=== PATIENT | female | born 1995 | race Two or more races ===

== ENCOUNTER 2024-10-26 01:25 | Observation (INO) | payer BC, MEDICAID ==
[2024-10-26] MEDS ORDERED: PREN-96 PO (02:21)
--- NOTE | 2024-10-26 10:39 | DVHDS2 ---
Physician Discharge Progress N Final Diagnosis: PSD Operations or Procedures: Operations or Procedures S: 29yo IUP@34.3wks presents to OB triage with complaints of constant pubic pain in the middle. Denies UCs/LOF/VB/MANCUSO/vision changes/RUQ pain. Endorses +FM. PNC with Dr. Carson, uncomplicated. O: VSS NST reactive per RN TOCO: no UCs per RN A: 29yo IUP@34.3wks PSD P: D/C home Recommended wearing support belt to help with PSD pain. FKC/PTL/preE precautions reviewed. Dr. Harris consulted, agrees with POC. Condition on Discharge: Stable Disposition: Home Discharge Instructions: Diet: Regular Activity: No Restrictions, As Tolerated Medications: see med list Follow Up Care: Specialist: f/u with primary OB Discharge Statement: "Patient was advised to return to the ER or call 911 if any headaches, dizziness, shortness of breath, chest pain, abdominal pain, bleeding, fevers, or worsening of medical condition. Patient was counseled about treatment plan, medications, possible side effects, patientverbalized understanding. All questions were answered to the best of my ability. This discharge took greater then 30 minutes in planning, reviewing documentation, counseling the patient, and discussing with other team members." Visit Coding OBGYN Date of Service: Oct 26, 2024 Billing Provider: SADE SMITH CNM [employer] Common Visit Codes: 85386-[facility] (MOD) [employer] Procedure Codes: 76162-03- NON-STRESS TEST SADE SMITH CNM Oct 26, 2024 10:39
== END 2024-10-26 02:34 | disposition home or self-care (01) ==
LOC: LDRP 01:25
PROVIDERS: ADMIT Obstetrics & Gynecology; ATTEND Obstetrics & Gynecology
DX: O26.893 Other specified pregnancy related conditions, third trimester (principal); R10.30 Lower abdominal pain, unspecified; Z3A.34 34 weeks gestation of pregnancy; Z98.890 Other specified postprocedural states
CPT/HCPCS: 59025; 81002; 94760; G0378